=== PATIENT | female | born 1980 | race Caucasian/White ===

== ENCOUNTER 2019-04-28 09:30 | Emergency (ER) | payer OTHER ==
[~2019-04-28] VITALS: Ht 175.3 cm; Wt 77.1 kg
[2019-04-28] MEDS ORDERED: GABAPENTIN800 M1 PO (09:44)
[2019-04-28] MEDS ORDERED: ZOLOFT100 MG PO (09:45)
[2019-04-28] MEDS ORDERED: XANAX 0.5 MG0.5 M1 PO (09:45)
[2019-04-28] MEDS ORDERED: FLEXERIL PO ×2 (09:46→10:14)
[2019-04-28] MEDS ORDERED: TRAMADOL 50 MG50 MG PO (09:46)
[2019-04-28] MEDS ORDERED: NORCO 5-325 TA1 EAC1 PO (10:14)
[2019-04-28 10:27] VITALS: BP 119/83
== END 2019-04-28 10:28 | disposition home or self-care (01) ==
LOC: M.ERS 09:30
DX: S16.1XXA Strain of muscle, fascia and tendon at neck level, initial encounter (principal); S29.012A Strain of muscle and tendon of back wall of thorax, initial encounter; S39.012A Strain of muscle, fascia and tendon of lower back, initial encounter; M79.7 Fibromyalgia; V89.2XXA Person injured in unspecified motor-vehicle accident, traffic, initial encounter; Y93.89 Activity, other specified; Y92.89 Other specified places as the place of occurrence of the external cause; Y99.8 Other external cause status

== ENCOUNTER 2020-09-11 16:22 | Emergency (ER) | payer OTHER ==
[~2020-09-11] VITALS: Ht 175.3 cm; Wt 88.0 kg
[~2020-09-11 16:22] MED LIST: FLEXERIL PO; GABAPENTIN800 M1 PO; NORCO 5-325 TA1 EAC1 PO; TRAMADOL 50 MG50 MG PO; XANAX 0.5 MG0.5 M1 PO; ZOLOFT100 MG PO
[2020-09-11] MEDS ORDERED: IBUPROFEN 600600 M1 PO (16:37)
[2020-09-11] MEDS ORDERED: ADDERALL 20 MG20 MG PO (16:37)
[2020-09-11 18:11] VITALS: BP 124/68
== END 2020-09-11 18:11 | disposition home or self-care (01) ==
LOC: M.ERS 16:22
DX: S39.012A Strain of muscle, fascia and tendon of lower back, initial encounter (principal); M79.7 Fibromyalgia; X50.9XXA Other and unspecified overexertion or strenuous movements or postures, initial encounter; Y93.89 Activity, other specified; Y92.89 Other specified places as the place of occurrence of the external cause; Y99.8 Other external cause status

== ENCOUNTER 2020-11-24 12:24 | Emergency (ER) | payer OTHER ==
[~2020-11-24] VITALS: Ht 175.3 cm; Wt 89.4 kg
[~2020-11-24 12:24] MED LIST changes: +ADDERALL 20 MG20 MG PO; +IBUPROFEN 600600 M1 PO
[2020-11-24] MEDS ORDERED: NEURONTIN 400400 M1 PO (12:43)
[2020-11-24] MEDS ORDERED: AMBIEN 5 MG TABL5 M1 PO (12:45)
[2020-11-24] MEDS ORDERED: BENTYL 10 MG CA10 M1 PO (12:45)
[2020-11-24] MEDS ORDERED: DICLOFENAC SOD50 M1 PO (12:45)
[2020-11-24] MEDS ORDERED: CEPHALEXIN500 MG PO (12:48)
[2020-11-24] MEDS ORDERED: BACTRIM DS TAB1 EACH PO (12:48)
[2020-11-24 13:11] VITALS: BP 128/84
== END 2020-11-24 13:12 | disposition home or self-care (01) ==
LOC: M.ERS 12:24
DX: L03.311 Cellulitis of abdominal wall (principal); M79.7 Fibromyalgia; Z79.899 Other long term (current) drug therapy